=== PATIENT | female | born 1970 | race American Indian/Alaskan Native ===

== ENCOUNTER 2018-09-14 11:57 | Emergency (ER) | payer SELFPAY ==
[2018-09-14 12:13] VITALS: BP 112/77
--- NOTE | 2018-09-14 12:54 | Emergency Department Report ---
ED Female HPI - General Chief complaint: Urogenital-Female Stated complaint: ABD PAIN/BACK PAIN/5XDAYS/N/V Time Seen by Provider: 09/14/18 12:37 Source: patient Mode of arrival: Ambulatory Limitations: No Limitations - History of Present Illness Initial comments: This is a 48-year-old female presents to ED complaining of right-sided flank pain intermittently for the past week. Patient states the past couple of days she noticed ringing sensation when she urinates. Patient also states that she demonstrates some vaginal irritation which she thinks is doing with her urine. Patient denies any vaginal bleeding, vaginal discharge, pelvic pain, abdominal pain. MD Complaint: dysuria - Related Data Previous Rx's Medication Instructions Recorded Last Taken Type Fluconazole [Diflucan] 150 mg PO ONCE #1 tablet 09/14/18 Unknown Rx Phenazopyridine [Pyridium] 100 mg PO TID #10 tab 09/14/18 Unknown Rx Sulfamethoxazole/Trimethoprim 1 each PO BID #14 tablet 09/14/18 Unknown Rx [Bactrim DS TAB] Allergies Allergy/AdvReac Type Severity Reaction Status Date / Time No Known Allergies Allergy Unverified 09/14/18 12:10 ED Review of Systems ROS: Stated complaint: ABD PAIN/BACK PAIN/5XDAYS/N/V Other details as noted in HPI Comment: All other systems reviewed and negative ED Past Medical Hx - Past Medical History Previous Medical History?: No - Surgical History Past Surgical History?: Yes Additional Surgical History: PARTIAL HYSTO - Social History Smoking Status: Current Every Day Smoker Substance Use Type: Alcohol - Medications Home Medications: Home Medications Medication Instructions Recorded Confirmed Last Taken Type Fluconazole [Diflucan] 150 mg PO ONCE #1 tablet 09/14/18 Unknown Rx Phenazopyridine [Pyridium] 100 mg PO TID #10 tab 09/14/18 Unknown Rx Sulfamethoxazole/Trimethoprim 1 each PO BID #14 tablet 09/14/18 Unknown Rx [Bactrim DS TAB] ED Physical Exam - General Limitations: No Limitations General appearance: alert, in no apparent distress - Head Head exam: Present: atraumatic, normocephalic - Eye Eye exam: Present: normal appearance - ENT ENT exam: Present: mucous membranes moist - Neck Neck exam: Present: normal inspection - Respiratory Respiratory exam: Present: normal lung sounds bilaterally. Absent: respiratory distress - Cardiovascular Cardiovascular Exam: Present: regular rate, normal rhythm. Absent: systolic murmur, diastolic murmur, rubs, gallop - GI/Abdominal GI/Abdominal exam: Present: soft, normal bowel sounds - Extremities Exam Extremities exam: Present: normal inspection - Back Exam Back exam: Present: normal inspection - Neurological Exam Neurological exam: Present: alert, oriented X3 - Psychiatric Psychiatric exam: Present: normal affect, normal mood - Skin Skin exam: Present: warm, dry, intact, normal color. Absent: rash ED Course Vital Signs 09/14/18 12:11 Temperature 97.9 F Pulse Rate 98 H Respiratory 18 Rate Blood Pressure 112/77 O2 Sat by Pulse 98 Oximetry ED Medical Decision Making - Medical Decision Making 48-year-old female presents with a bacterial urinary tract infection ED course: Patient received an antibiotic dose and Motrin during ED stay Urinalysis is positive for bacteria and esterase and white blood cell I discussed this findings with the patient. I discussed the patient to make sure he completes all of the antibiotic dose even until symptoms resolve. I discussed with the patient on Pyridium will turn his urine orangeish color but will stop once he stops taking pyridium Patient is in no acute distress, patient also has on instructions were given to her. Critical care attestation.: If time is entered above; I have spent that time in minutes in the direct care of this critically ill patient, excluding procedure time. ED Disposition Clinical Impression: UTI (urinary tract infection), Vaginitis Disposition: TO HOME OR SELFCARE Is pt being admited?: No Does the pt Need Aspirin: No Condition: Stable Instructions: Urinary Tract Infection in Women (ED), Vaginitis (ED), Dysuria (ED) Additional Instructions: Make sure to follow up with the primary care physician as discussed. Take all your medications as you've been prescribed. If you have any worsening symptoms or develop new symptoms please return to ED immediately. Prescriptions: Fluconazole [Diflucan] 150 mg PO ONCE #1 tablet Phenazopyridine [Pyridium] 100 mg PO TID #10 tab Sulfamethoxazole/Trimethoprim [Bactrim DS TAB] 1 each PO BID #14 tablet Referrals: [facility] [Outside] - 3-5 Days [facility] [Outside] - 3-5 Days Forms: Work/School Release Form(ED) Time of Disposition: 13:16
[2018-09-14 13:01] LABS: Bacteria,Urine 1+ /HPF (Negative); Bilirubin,Urine NEG (Negative); Blood,Urine MOD (Negative); Color,Urine Yellow (Yellow); Mucus,Urine FEW /HPF; Protein,Urine <15 mg/dL mg/dL (Negative); Urobilinogen,Urine < 2.0 mg/dL (<2.0)
== END 2018-09-14 13:29 | disposition home or self-care (01) ==
LOC: ED 11:57
DX: N76.0 Acute vaginitis (principal); N39.0 Urinary tract infection, site not specified; F17.200 Nicotine dependence, unspecified, uncomplicated; Z90.711 Acquired absence of uterus with remaining cervical stump
CPT/HCPCS: 81001; 99283

== ENCOUNTER 2021-08-12 07:59 | Emergency (ER) | payer SELFPAY ==
[2021-08-12 08:05] VITALS: BP 112/79
--- NOTE | 2021-08-12 08:15 | Emergency Department Report ---
ED Eye Problem HPI - General Chief complaint: Eye Problems Stated complaint: LEFT EYE BLURRY X 2 DAYS Time Seen by Provider: 08/12/21 08:10 Source: patient Mode of arrival: Ambulatory Limitations: No Limitations - History of Present Illness Initial comments: 51 yo comes to er with feeling of foreign body and scratchiness of the left eye She reports growth under the eye lid for some time (says weeks; but appears chronic in the area is epithelialized) Denies vision change to provider no contacts/ lenses no trauma no discharge no fever no eye pain chief complaint: other -: Gradual, week(s) Onset Description: gradual Location: left eye Place: home If Injury: none Eye Symptoms: foreign body sensation Severity: mild Consistency: constant Associated Symptoms: none Treatments Prior to Arrival: none - Related Data Patient Tetanus UTD: Yes Previous Rx's Medication Instructions Recorded Last Taken Type Erythromycin [Erythromycin Ophth 0.5 inch OS Q4H #1 tube 08/12/21 Unknown Rx Oint] Allergies Allergy/AdvReac Type Severity Reaction Status Date / Time No Known Allergies Allergy Verified 08/12/21 08:33 ED Review of Systems ROS: Stated complaint: LEFT EYE BLURRY X 2 DAYS Other details as noted in HPI Comment: All other systems reviewed and negative ED Past Medical Hx - Past Medical History Previous Medical History?: Yes - Surgical History Past Surgical History?: Yes Additional Surgical History: PARTIAL HYSTO - Family History Family history: no significant - Social History Smoking Status: Current Every Day Smoker Substance Use Type: Alcohol - Medications Home Medications: Home Medications Medication Instructions Recorded Confirmed Last Taken Type Erythromycin [Erythromycin Ophth 0.5 inch OS Q4H #1 tube 08/12/21 Unknown Rx Oint] ED Physical Exam - General Limitations: No Limitations General appearance: alert, in no apparent distress - Head Head exam: Present: atraumatic, normocephalic - Eye Eye exam: Present: PERRL, EOMI - Expanded Eye Exam Expanded Eyelids: Swelling: Left Pupils: Regular, Round: Bilateral, Reactive: Bilateral Sclera/Conjunctival: Normal Inspection: Bilateral Anterior chamber: Normal Inspection: Bilateral - ENT ENT exam: Present: mucous membranes moist - Neck Neck exam: Present: normal inspection - Respiratory Respiratory exam: Present: normal lung sounds bilaterally. Absent: respiratory distress - Cardiovascular Cardiovascular Exam: Present: regular rate, normal rhythm. Absent: systolic murmur, diastolic murmur, rubs, gallop - GI/Abdominal GI/Abdominal exam: Present: soft, normal bowel sounds - Extremities Exam Extremities exam: Present: normal inspection - Back Exam Back exam: Present: normal inspection - Neurological Exam Neurological exam: Present: alert, oriented X3 - Psychiatric Psychiatric exam: Present: normal affect, normal mood - Skin Skin exam: Present: warm, dry, intact, normal color. Absent: rash ED Course Vital Signs 08/12/21 08:02 Temperature 97.6 F Pulse Rate 88 Respiratory 17 Rate Blood Pressure 112/79 [Right] O2 Sat by Pulse 97 Oximetry ED Medical Decision Making - Medical Decision Making educated on Eye MD follow up to evaluate growth She has had this growth for some time - appears chronic PERRL EOMS intact vision in all cantor I suspect the growth is causing her to have the corneal abrasion inc uptake fluoros. at lateral edge of conjunctiva of left eye no contact lenses no trauma Growth is pea sized under the left upper eye lid at the outer [place] dc home with dc plan of care including follow up, meds, diet and activity Vital Signs 08/12/21 08:02 Temperature 97.6 F Pulse Rate 88 Respiratory 17 Rate Blood Pressure 112/79 [Right] O2 Sat by Pulse 97 Oximetry - Differential Diagnosis l eye abrasion secondary to growth under left upper eye lid Critical care attestation.: If time is entered above; I have spent that time in minutes in the direct care of this critically ill patient, excluding procedure time. ED Disposition Clinical Impression: Corneal abrasion, Abnormal skin growth Disposition: 01 HOME / SELF CARE / HOMELESS Is pt being admited?: No Does the pt Need Aspirin: No Condition: Stable Additional Instructions: med as given to you today follow up with eye MD andre referral below Prescriptions: Erythromycin [Erythromycin Ophth Oint] 0.5 inch OS Q4H #1 tube Referrals: ACE DEL ANGEL MD [Staff Physician] - 3-5 Days YONAS DELGADO MD [Staff Physician] - 3-5 Days Time of Disposition: 08:13
[2021-08-12] MEDS ORDERED: ERYTHROMYCIN 5 MG/1 GM OPHTH OINT OS SCH (09:00)
== END 2021-08-12 09:08 | disposition home or self-care (01) ==
LOC: ED 07:59
DX: S05.02XA Injury of conjunctiva and corneal abrasion without foreign body, left eye, initial encounter (principal); L98.9 Disorder of the skin and subcutaneous tissue, unspecified; F17.200 Nicotine dependence, unspecified, uncomplicated; Z72.89 Other problems related to lifestyle; Z98.890 Other specified postprocedural states; X58.XXXA Exposure to other specified factors, initial encounter; Y93.89 Activity, other specified; Y92.89 Other specified places as the place of occurrence of the external cause; Y99.8 Other external cause status
CPT/HCPCS: 99282